=== PATIENT | male | born 1950 | race African-American/Black ===

== ENCOUNTER 2017-12-13 09:42 | Inpatient (IN) | payer OTHER, MEDICARE ==
[~2017-12-13] VITALS: Ht 180.3 cm; Wt 84.8 kg
--- OUTSIDE RECORDS SUMMARY | 2017-12-13 09:44 | XMS REPORT | Clinical Summary ---
Author Author [facility] Organization [facility] Address Unknown Phone Unavailable Care Team Providers Care Camp Boss Name Role Phone Keenan Rojas MD PCP Allergies No Known Allergies Current Medications Prescription Sig. Disp. Refills Start End Date Status Date doxazosin (CARDURA) 1 MG Take 1 mg by mouth Active tablet nightly. pravastatin (PRAVACHOL) Take 40 mg by mouth Active 40 MG tablet daily. atenolol (TENORMIN) 50 MG Take 50 mg by mouth Active tablet daily. aspirin (ECOTRIN) 81 MG Take 81 mg by mouth Active enteric coated tablet daily. vitamin E 400 UNIT Take 400 Units by mouth Active capsule daily. omeprazole (PriLOSEC) 40 Take 40 mg by mouth 04/22/20 Discontin MG capsule daily. 17 ued omeprazole (PriLOSEC) 40 Take 1 capsule (40 mg 30 capsule 1 04/22/20 07/21/20 MG capsule total) by mouth daily for 17 17 90 days. Active Problems Problem Noted Date Gastroesophageal reflux disease 04/22/2017 Dyspepsia 04/22/2017 Dysphagia 04/22/2017 Encounters Date Type Specialty Care Team Description 05/03/2017 Procedure Pass Gastroenterology 04/29/2017 Telephone Gastroenterology Lesli Perez MA 04/22/2017 Office Visit Gastroenterology Eliseo Echevarria MD Gastroesophageal reflux disease, esophagitis presence not specified (Primary Dx);Dyspepsia;Other dysphagia;Dyslipidemia after 12/12/2016 Family History Medical History Relation Name Comments No Known Problems Father Diabetes Mother Heart attack Mother Hypertension Mother Relation Name Status Comments Father Mother Social History Tobacco Use Types Packs/Day Years Used Date Former Smoker Quit: 1987 Alcohol Use Drinks/Week oz/Week Comments No Sex Assigned at Date Recorded Not on file Last Filed Vital Signs Vital Sign Reading Time Taken Blood Pressure 149/90 04/22/2017 1:59 PM CDT Pulse 65 04/22/2017 1:59 PM CDT Temperature 36.8 C (98.3 F) 04/22/2017 1:59 PM CDT Respiratory Rate 12 04/22/2017 1:59 PM CDT Oxygen Saturation - - Inhaled Oxygen - - Concentration Weight 78.8 kg (173 lb 12.8 oz) 04/22/2017 1:59 PM CDT Height 177.8 cm (5' 10") 04/22/2017 1:59 PM CDT Body Mass Index 24.94 04/22/2017 1:59 PM CDT Plan of Treatment Health Maintenance Due Date Last Done Comments COLONOSCOPY 2001 ZOSTER VACCINE 2011 PNEUMOCOCCAL 02/11/2016 POLYSACCHARIDE VACCINE AGE 65 AND OVER PNEUMOCOCCAL-13 02/11/2016 INFLUENZA VACCINE 06/08/2017 Results Not on fileafter 12/12/2016 Insurance Payer Benefit Subscriber ID Type Phone Address Plan / Group AETNA AETNA PPO [id number] PPO OPEN CHOICE
[2017-12-13] MEDS ORDERED: PROCARDIA XL30 MG PO (09:47)
[2017-12-13] MEDS ORDERED: ATENOLOL50 MG PO (09:47)
[2017-12-13] MEDS ORDERED: OMEPRAZOLE40 MG PO (09:47)
[2017-12-13] MEDS ORDERED: ASPIRIN 81 MG CHEW TAB PO STA (09:58)
[2017-12-13] MEDS ORDERED: NITROGLYCERIN 2% OINT 1 GM PKT TOP STA (09:58)
[2017-12-13] MEDS ORDERED: ASPIRIN 81 MG CHEW TAB PO ONE ×2 (10:00→11:15)
[2017-12-13 10:11] LABS: BASOPHILS % 0.4 % (0.0-1.0); EOSINOPHILS # (AUTO) 0.1 (0.0-0.4); EOSINOPHILS % 2.8 % (0.0-6.0); HEMATOCRIT 50.2 % (38.2-49.6); HEMOGLOBIN 17.1 g/dL (14.0-18.0); LYMPHOCYTES # (AUTO) 1.8 (1.0-3.2); LYMPHOCYTES % 38.6 % (18.0-39.1); MEAN CORPUSCULAR HEMOGLOBIN 31.4 pg (28-32); MEAN CORPUSCULAR HGB CONC 34.1 g/dL (31-35); MEAN CORPUSCULAR VOLUME 92.1 fL (81-99); MONOCYTES # (AUTO) 0.4 (0.2-0.8); NEUTROPHILS # (AUTO) 2.3 (2.1-6.9); NEUTROPHILS % 48.8 % (38.7-80.0); PLATELET COUNT 178 x10e3/uL (140-360); RED BLOOD COUNT 5.45 x10e6/uL (4.3-5.7); RED CELL DISTRIBUTION WIDTH 13.2 % (11.7-14.4)
[2017-12-13 10:14] LABS: INR 0.97; PROTHROMBIN TIME 13.4 seconds (11.9-14.5)
[2017-12-13 10:15] LABS: PARTIAL THROMBOPLASTIN TIME 26.8 seconds (23.8-35.5)
--- NOTE | 2017-12-13 10:26 | Diagnostic Imaging Report ---
PROCEDURE:CHEST SINGLE (PORTABLE) TECHNIQUE:Portable AP chest INDICATION:Chest pain COMPARISON:None. FINDINGS: Minimal left basilar subsegmental atelectasis. Lungs otherwise clear. No pleural effusions. Normal heart size, mediastinal contour, and pulmonary vasculature for technique. Intact skeleton. CONCLUSION: No acute abnormality. Dictated by: Rupert Pedraza M.D. on 12/13/2017 at 10:35 Electronically approved by: Rupert Pedraza M.D. on 12/13/2017 at 10:35
[2017-12-13 10:28] LABS: ALANINE AMINOTRANSFERASE 16 IU/L (0-55); ALBUMIN/GLOBULIN RATIO 1.1 (0.8-2.0); ALKALINE PHOSPHATASE 73 IU/L (40-150); ANION GAP 11.3 mmol/L (8-16); BLOOD UREA NITROGEN 12 mg/dL (7-26); BUN/CREATININE RATIO 10 (6-25); CALCIUM 9.4 mg/dL (8.4-10.2); CARBON DIOXIDE 28 mmol/L (22-29); CHLORIDE 103 mmol/L (98-107); CREATINE KINASE 100 IU/L (30-200); CREATININE, SERUM 1.19 mg/dL (0.72-1.25); EST GLOMERULAR FILTRATION RATE > 60 ML/MIN (60-); GLUCOSE 110 mg/dL (74-118); POTASSIUM 4.3 mmol/L (3.5-5.1); SODIUM 138 mmol/L (136-145)
[2017-12-13] MEDS ORDERED: SODIUM CHLORIDE FLUSH 10 ML SYR INJ PRN (11:15)
[2017-12-13] MEDS ORDERED: NITROGLYCERIN 0.4 MG SUBL SL PRN (11:15)
[2017-12-13] MEDS ORDERED: MORPHINE SULFATE 2 MG/ML SYR IV PRN (11:15)
[2017-12-13] MEDS ORDERED: ONDANSETRON HCL INJ 2 MG/ML VIAL IV PRN ×2 (11:15→17:00)
--- OUTSIDE RECORDS SUMMARY | 2017-12-13 11:33 | XMS REPORT | Clinical Summary ---
Author Author [facility] Organization [facility] Address Unknown Phone Unavailable Care Team Providers Care Production Tester Name Role Phone Keenan Rojas MD PCP [...] Address Plan / Group AETNA AETNA PPO [id number] PPO OPEN CHOICE
--- OUTSIDE RECORDS SUMMARY | 2017-12-13 11:33 | XMS REPORT ---
Author Author [facility] Address Unknown Phone Unavailable Care Team Providers Care Manager Marketing Communications Name Role Phone OSMEL WAITE Unavailable Unavailable Problems This patient has no known problems. Allergies, Adverse Reactions, Alerts This patient has no known allergies or adverse reactions. Medications This patient has no known medications. Results Test Description Test Time Test Comments Text Results Atomic Results Result Comments CHEST SINGLE (PORTABLE) [place] [id number] Patient Name: LELO YUNG MR #: [id number] : 1950 Age/Sex: 67/M Req #: [id number] Adm Physician: Ordered by: OSMEL WAITE MD Report #: [id number] Location: ER Room/Bed: Procedure: [id number] DX/CHEST SINGLE (PORTABLE) Exam Date: 12/13/17 Exam Time: 1019 REPORT STATUS: Signed PROCEDURE: CHEST SINGLE (PORTABLE) TECHNIQUE: Portable AP chest INDICATION: Chest pain COMPARISON: None. FINDINGS: Minimal left basilar subsegmental atelectasis. Lungs otherwise clear. No pleural effusions. Normal heart size, mediastinal contour, and pulmonary vasculature for technique. Intact skeleton. CONCLUSION: No acute abnormality. Dictated by: Enma Pedraza M.D. on 12/13/2017 at 10:35 Electronically approved by: Enma Pedraza M.D. on 12/13/2017 at 10:35 Dictated By: ENMA PEDRAZA MD [id number] Transcribed By: ZACHARY on 12/13/17 1035 COPY TO: OSMEL WAITE MD
--- NOTE | 2017-12-13 13:01 | Consultation ---
DATE OF CONSULTATION: December 13, 2017 CARDIOLOGY CONSULTATION REASON FOR CONSULTATION: Chest pain. HISTORY OF PRESENT ILLNESS: Mr. Bearden is a 67-year-old gentleman with a past medical history of hypertension and hypercholesterolemia, who presented to this institution after an episode of chest pain. The patient has been reporting off and on chest pain as being a substernal to left parasternal tightness, aching and heaviness associated with dyspnea, nausea and malaise. This has been going on for the last 6 months and has been slowly escalating over time. He had tried to adjust his lifestyle. However, when decreasing the workload, the pain is becoming more severe and more ominous at present. He also notes when his blood pressure starts to rise, his chest pain also gets worse. The patient has been treated medically with anticholesterol medication as well as high-dose beta bianca therapy to making his heart rate in the 60s range. Despite this, he continues to have discomfort. Cardiology consultation is thus obtained. PAST MEDICAL HISTORY 1. Hypertension, essential. 2. Hypercholesterolemia. 3. GERD with remote history of EGD without any history of ulcer. FAMILY HISTORY: Mother at the age of 81 of old age. Father is unknown. SOCIAL HISTORY: He is a former smoker, quit 40 years ago. Denies any alcohol or illicit drug use. He is a retired maintenance migue. ALLERGIES: NO KNOWN DRUG ALLERGIES. HOME MEDICATIONS 1. Atenolol 50 mg daily. 2. Nifedipine 30 mg daily. 3. Omeprazole 40 mg daily. REVIEW OF SYSTEMS GENERAL: Positive for fatigue and malaise. Denies any fever or chills. HEENT: No headaches, visual complaints, sore throat, stuffy nose. RESPIRATORY: Denies any pleuritic chest pain. Has occasional cough. CARDIOVASCULAR: Tightness is noted as per HPI. Denies any palpitations, syncope or near syncope. GI: Denies any abdominal pain, nausea, vomiting, bright red blood per rectum, melena or hematemesis. : Denies any dysuria. Has increased urinary frequency with nocturia. MUSCULOSKELETAL: Has lower back pain with left leg radicular-type symptoms. SKIN: No rashes or breakdown. ID: No known infectious issues. NEUROLOGIC: Denies any seizures, history of TIA, stroke. OTHER: The remainder of the review of systems is negative unless otherwise mentioned. PHYSICAL EXAMINATION VITALS: Height of 5 feet 10 inches, weight 181 pounds. Pulse 56, blood pressure 118/81, respiratory rate 18. O2 sat is 99% on room air. GENERAL: This is a well-nourished, well-developed gentleman who is currently chest pain-free and in no apparent distress. HEENT: Normocephalic and atraumatic. The extraocular movements are intact. Pupils are equal and reactive to light. Oropharynx is clear. NECK: No elevation of jugular venous pulsation. No carotid bruit. CARDIOVASCULAR: Regular rate and rhythm. Normal S1 and S2. Soft, 2/6, systolic murmur at the right upper sternal border. LUNGS: Largely clear to auscultation bilaterally with good air entry. ABDOMEN: Soft. Nontender and nondistended with normoactive bowel sounds and no hepatosplenomegaly. BACK: No costovertebral angle tenderness. EXTREMITIES: Warm with 2+ bilateral radial pulses, 1 to 2+ bilateral femoral pulses and 1+ pedal pulses. NEUROLOGIC: Cranial nerves II through XII are intact. Strength 5/5. Grossly nonfocal. LABS: White count 4.66, hemoglobin 17.1, hematocrit 50.2, platelets 178. Sodium 138, potassium 4.3, chloride 103, bicarb 28, BUN 12, creatinine 1.9, AST 22, ALT 16, alk phos 73, total protein 7.8, albumin 4.0. BNP 331.6. Troponin 0.04. INR is 0.97. Calcium 9.4. Chest x-ray is unremarkable. EKG reveals normal sinus rhythm, early repolarization pattern and no ST-T-wave changes concerning for ischemia. DIAGNOSES 1. Chest pain by history highly suggestive of [place] Cardiovascular Society grade III angina on dual antianginal with beta bianca and calcium channel bianca therapy. 2. Hypertension, essential. 3. Hypercholesterolemia. 4. Former smoker. PLAN/RECOMMENDATIONS 1. From a cardiovascular standpoint, will put him on antiplatelet therapy and continue his beta bianca, calcium channel bianca therapy and statin therapy. 2. In light of symptoms, will go ahead and proceed with ischemic risk stratification with treadmill stress test to help us figure out the appropriate right next step with a low threshold for cardiac catheterization is positive. 3. Will check an echocardiogram to evaluate his exertional dyspnea symptoms. 4. Telemetry monitoring. 5. Further plans/recommendations to follow. Job#: [id number] MH
--- NOTE | 2017-12-13 13:23 | Cardiology Report ---
DATE OF STUDY: December 13, 2017 EXERCISE TREADMILL STRESS TEST INDICATIONS FOR STUDY: Chest pain highly suggestive of angina. This is for ischemic risk stratification. TECHNICAL DETAIL: After risks, benefits, pros and cons to the exercise treadmill stress test were explained, the patient agreed to proceed. The patient was exercised on a Deejay protocol for a total duration of 7 minutes 37 seconds. The heart rate went from a baseline of 56 beats per minute to a maximum of 114 beats per minute and below the target heart rate of 131 beats per minute. The treadmill stress test was stopped due to ischemic EKG changes and typical anginal symptoms. The blood pressure went from a baseline of 118/81 to a maximum of 178/101. The protocol was terminated in stage 3 of exercise, again at a total exercise duration of 7 minutes 36 seconds. He had maximally [address] depressions in the inferior leads as well as the lateral precordial leads. Ischemic EKG symptoms and changes resolved by 30 minutes into recovery. CONCLUSIONS 1. Abnormal treadmill stress test suggestive of ischemia at a submax exercise protocol with 1 to 2 mm depressions in the inferior and lateral leads along with typical anginal symptoms. 2. Findings of the stress test compatible with intermediate to high risk treadmill stress test. Job#: [id number]
[2017-12-13] MEDS: NITROGLYCERIN 2% OINT 1 GM PKT TOP SCH ×3 (14:50→21:06)
[2017-12-13] MEDS: FAMOTIDINE 20 MG TAB PO SCH ×2 (14:50→20:29)
[2017-12-13 16:38] LABS: BILIRUBIN,URINE NEGATIVE (NEGATIVE); CLARITY,URINE CLEAR (CLEAR); COLOR,URINE YELLOW (YELLOW); KETONES,URINE NEGATIVE (NEGATIVE); LEUKOCYTE ESTERASE ,URINE NEGATIVE (NEGATIVE); NITRITE,URINE NEGATIVE (NEGATIVE); PROTEIN,URINE DIPSTICK NEGATIVE (NEGATIVE); URINE UROBILINOGEN 0.2 mg/dL (0.2 - 1)
[2017-12-13] MEDS ORDERED: CLOPIDOGREL BISULFATE 75 MG TAB PO ONE (16:45)
[2017-12-13] MEDS ORDERED: ACETAMINOPHEN 325 MG TAB PO PRN (17:00)
[2017-12-13] MEDS ORDERED: HYDRALAZINE HCL 20 MG/ML VIAL IV PRN (17:30)
--- NOTE | 2017-12-13 17:56 | History and Physical ---
CHIEF COMPLAINT: Chest pain. HPI: This is a 67-year-old male with a known history of hypertension and hyperlipidemia. He presented to the ED with complaint of chest pain ongoing substernally to the left side with parasternal tightness ongoing for the last 6 months. He reports lately that it has been episodic and has been severe in pain. He also reports having some decrease in workload and becoming more severe over the last few days. He also reports that his blood pressure is elevated, and his chest pain gets worse when his blood pressure is high. The patient also is being treated with anticholesterol medication as well. The patient does not have a primary care physician. Patient was seen and evaluated at bedside on the medical floor and the ER, currently doing well. Denies any chest pain at this current moment. REVIEW OF SYSTEMS: Pertinent positives: Chest pain. Pertinent negatives: Denies any palpitations, nausea, vomiting, diarrhea, dysuria, hematuria, frequency, urgency, lightheadedness, dizziness, abdominal pain, headache, shortness of breath, or any other complaints. The rest of the 14-point review of systems have been reviewed with the patient and are negative. ALLERGIES: NO KNOWN DRUG ALLERGIES. HOME MEDICATIONS 1. Atenolol 50 mg daily. 2. Nifedipine 30 mg daily. 3. Omeprazole 40 mg daily. PAST MEDICAL HISTORY: Hypertension, dyslipidemia, GERD. FAMILY HISTORY: Mother at age 81. Father unknown. Hypertension and diabetes in the family. SURGICAL HISTORY: None. SOCIAL HISTORY: Former smoker, quit 40 years ago. Denies any alcohol or any drugs. He is retired maintenance. VITAL SIGNS: Temperature 98, pulse 50, respiratory rate 16, blood pressure 163/108, pulse ox 98% on room air. LAB FINDINGS: White count 4.6, hemoglobin 17, hematocrit 50, platelets 178. Coagulations are normal. Chemistries: Sodium 138, potassium 4.3, chloride 103, bicarb 28, anion gap 11, BUN 12, creatinine 1.1, glucose 110, calcium 9.4. LFTs are normal. CK was 0.004. BNP 32. Albumin 4. Urinalysis was negative. MICROBIOLOGY: Urine culture pending. IMAGING STUDIES: Chest x-ray was negative. PHYSICAL EXAMINATION GENERAL: No acute distress. Alert and oriented times 3. Cooperative on exam. HEENT: Head is normocephalic and atraumatic. Eyes: Pupils are equal, round, and reactive to light bilaterally. The extraocular movements are intact bilaterally. NECK: Supple. Good range of motion. Throat: No evidence of erythema or exudates in the posterior pharynx. Has poor dentition. PULMONARY: Clear to auscultation bilaterally. No wheezing, no rales, no rhonchi. No crackles appreciated. CARDIOVASCULAR: Positive S1 and S2. No murmurs, rubs or gallops appreciated. ABDOMEN: Soft, nondistended. Nontender to palpation. Bowel sounds are present. MUSCULOSKELETAL: Strength is 5/5 throughout. No evidence of any musculoskeletal deficit on examination. No weakness appreciated. NEUROLOGIC: Cranial nerves II through XII are grossly intact. No evidence of any neurological deficit on exam. SKIN: Intact. Warm to touch. Good capillary refill. PSYCHIATRIC: Normal affect and mood. EXTREMITIES: No edema. Good range of motion throughout. ASSESSMENT AND PLAN 1. Typical chest pain with unstable angina. Troponins are negative. BNP within the normal range. Cardiology has been consulted. Stress test was performed and found to be abnormal already. A 2-D echo is pending. Cardioprotective meds, Plavix, aspirin, LAZ inhibitor, beta blockade and statins. Hemoglobin A1c and lipid panel ordered. 2. Hypertension. Currently, the blood pressure is stable. Will continue the same home medications and monitor closely, p.r.n. hydralazine. 3. Hyperlipidemia. Lipid panel in the morning. Oral Lipitor. 4. Prophylaxis: He is going to be on Lovenox. 5. Fluids, electrolytes and nutrients: IV fluids. Regular heart healthy diet now, n.p.o. after midnight. 6. Disposition: Observation. Cardiology consulted. Job#: [id number]
[2017-12-13 19:05] LABS: CREATINE KINASE MB 1.4 ng/mL (0.00-5.00)
[2017-12-13] MEDS: DOXAZOSIN MESYLATE 2 MG TAB PO SCH (21:06)
[2017-12-13] MEDS: SODIUM CHLORIDE 0.9% 1000ML 1,000 ML IV SCH (21:06)
[2017-12-13] MEDS: ATORVASTATIN 40 MG TAB PO SCH (21:06)
[2017-12-14 02:13] LABS: CREATINE KINASE MB 1.1 ng/mL (0.00-5.00)
[2017-12-14 04:46] LABS: BASOPHILS % 0.5 % (0.0-1.0); EOSINOPHILS # (AUTO) 0.1 (0.0-0.4); EOSINOPHILS % 3.3 % (0.0-6.0); HEMATOCRIT 44.2 % (38.2-49.6); HEMOGLOBIN 15.2 g/dL (14.0-18.0); LYMPHOCYTES # (AUTO) 1.7 (1.0-3.2); LYMPHOCYTES % 42.8 % (18.0-39.1); MEAN CORPUSCULAR HGB CONC 34.4 g/dL (31-35); MEAN CORPUSCULAR VOLUME 90.2 fL (81-99); MONOCYTES # (AUTO) 0.4 (0.2-0.8); MONOCYTES % 9.2 % (4.4-11.3); NEUTROPHILS # (AUTO) 1.7 (2.1-6.9); NEUTROPHILS % 44.2 % (38.7-80.0); PLATELET COUNT 186 x10e3/uL (140-360); RED CELL DISTRIBUTION WIDTH 13.2 % (11.7-14.4)
[2017-12-14 04:57] LABS: INR 1.06; PARTIAL THROMBOPLASTIN TIME 29.3 seconds (23.8-35.5); PROTHROMBIN TIME 14.3 seconds (11.9-14.5)
[2017-12-14 05:14] LABS: ALANINE AMINOTRANSFERASE 14 IU/L (0-55); ALBUMIN 3.4 g/dL (3.5-5.0); ALKALINE PHOSPHATASE 66 IU/L (40-150); ANION GAP 13.2 mmol/L (8-16); BLOOD UREA NITROGEN 16 mg/dL (7-26); BUN/CREATININE RATIO 15 (6-25); CALCIUM 8.7 mg/dL (8.4-10.2); CARBON DIOXIDE 22 mmol/L (22-29); CHLORIDE 107 mmol/L (98-107); CHOL/HDL RATIO 6.5 (3.9-4.7); CHOLESTEROL 169 MD/DL (0-199); CREATININE, SERUM 1.08 mg/dL (0.72-1.25); EST GLOMERULAR FILTRATION RATE > 60 ML/MIN (60-); GLUCOSE 98 mg/dL (74-118); HDL CHOLESTEROL 26 MG/DL (40-60); LDL CHOLESTEROL 108 MG/DL (60-130); POTASSIUM 4.2 mmol/L (3.5-5.1); SODIUM 138 mmol/L (136-145); TRIGLYCERIDES 175 MG/DL (0-149)
[2017-12-14] MEDS: NITROGLYCERIN 2% OINT 1 GM PKT TOP SCH ×3 (05:56→18:48)
[2017-12-14] MEDS: ATENOLOL 50 MG TAB PO SCH (09:00)
[2017-12-14] MEDS: FAMOTIDINE 20 MG TAB PO SCH ×2 (09:00→19:46)
[2017-12-14] MEDS: ASPIRIN 81 MG ENTERIC COATED PO SCH (09:00)
[2017-12-14] MEDS: CLOPIDOGREL BISULFATE 75 MG TAB PO SCH (09:00)
[2017-12-14] MEDS ORDERED: IOPAMIDOL 370 MG/ML 200 ML INFUS..BTL INJ ONE ×2 (09:59→10:44)
[2017-12-14] MEDS ORDERED: LIDOCAINE HCL 2% LOCAL 20 ML VIAL ONE (09:59)
[2017-12-14] MEDS ORDERED: HEPARIN SOD/SOD CHLORIDE 2,000 ML ONE (10:01)
--- OUTSIDE RECORDS SUMMARY | 2017-12-14 10:02 | XMS REPORT | Clinical Summary ---
Author Author [facility] Organization [facility] Address Unknown Phone Unavailable Care Team Providers Care Director Of Residential Services Name Role Phone Keenan Rojas MD PCP [...] presence not specified (Primary Dx);Dyspepsia;Other dysphagia;Dyslipidemia after 12/13/2016 Family History Medical History Relation Name Comments [...] INFLUENZA VACCINE 06/08/2017 Results Not on fileafter 12/13/2016 Insurance Payer Benefit Subscriber ID Type Phone Address Plan / Group AETNA AETNA PPO [id number] PPO OPEN CHOICE
[2017-12-14] MEDS ORDERED: FENTANYL CITRATE/PF 100MCG/2 ML INJ ONE (10:15)
[2017-12-14] MEDS ORDERED: NITROGLYCERIN/D5W 200 MCG/ML 250 ML ONE (10:15)
[2017-12-14] MEDS ORDERED: MIDAZOLAM HCL 2 MG/2 ML VIAL ONE (10:15)
[2017-12-14] MEDS ORDERED: HEPARIN SOD (PORCINE) 1000 UNIT/ML 30ML ONE (10:15)
[2017-12-14] MEDS ORDERED: BIVALIRUDIN 250 MG/VIAL IV ONE (10:35)
[2017-12-14] MEDS ORDERED: SODIUM CHLORIDE 0.9% 50ML 50 ML ONE (10:35)
[2017-12-14] MEDS ORDERED: CLOPIDOGREL BISULFATE 75 MG TAB ONE (11:04)
[2017-12-14] MEDS ORDERED: ASPIRIN 325 MG TAB ONE (11:04)
[2017-12-14] MEDS ORDERED: SODIUM CHLORIDE 0.9% 1000ML 1,000 ML IV SCH (11:42)
[2017-12-14] MEDS ORDERED: MORPHINE SULFATE 2 MG/ML SYR IV PRN (11:45)
[2017-12-14] MEDS ORDERED: ZOLPIDEM TARTRATE 5 MG TAB PO PRN (11:45)
[2017-12-14] MEDS ORDERED: ONDANSETRON HCL INJ 2 MG/ML VIAL IV PRN (11:45)
[2017-12-14] MEDS ORDERED: ACETAMINOPHEN 325 MG TAB PO PRN (11:45)
[2017-12-14] MEDS: SODIUM CHLORIDE 0.9% 1000ML 1,000 ML IV SCH ×2 (12:20→18:47)
--- NOTE | 2017-12-14 13:55 | Operative Report ---
DATE OF PROCEDURE: December 14, 2017 PROCEDURES PERFORMED 1. Left heart cardiac catheterization with coronary angiography. 2. Left ventriculography. 3. Percutaneous coronary intervention with implantation of drug-eluting stent to the first diagonal branch. 4. Angio-Seal closure of the left common femoral arteriotomy . INDICATIONS FOR THE PROCEDURE: This is a 67-year-old gentleman with a history of hypertension and hypercholesteremia who presented to the emergency room with chest pain symptoms and underwent an exercise treadmill stress test. ____. DESCRIPTION OF PROCEDURE: After risks, benefits, pros and cons of today's procedure were explained, the patient agreed to proceed. The patient was brought to the cardiac catheterization laboratory where the right groin was prepped and draped in the usual sterile fashion. Lidocaine 1% solution was used to numb the right groin region. Access to the right femoral artery was obtained and a 4-Malagasy femoral sheath was placed. Selective coronary angiography of the left and right coronary arteries was performed with JL4 and 3DRC diagnostic catheters respectively. An angled pigtail catheter was placed in the ventricle for ventriculography and hemodynamic assessment of ventricular filling pressures. After noting severe , we decided to proceed with intervention. The 4-Malagasy femoral sheath was upsized to a 6-Malagasy, 22 cm femoral sheath. . We took a 6-Malagasy XP 3.5 guiding catheter and selected the left main coronary ostia. We took an 180 cm Prowater flex guidewire and after . We predilated the lesion with an Emerge 2.0 x 15 mm balloon up to 10 atmospheres of pressure for a total duration of 30 seconds. We then took a Synergy 2.25 x 20 mm drug-eluting stent and deployed that up to 12 atmospheres of pressure. Final angiography revealed 0% residual stenosis and no complications. conclusion of the case. Femoral angiogram was performed revealing femoral artery stick and a 6-Malagasy Angio-Seal closure device was successfully deployed achieving hemostasis. COMPLICATIONS: None. ESTIMATED BLOOD LOSS: Minimal. FINDINGS . Job#: [id number] SAK
--- OUTSIDE RECORDS SUMMARY | 2017-12-14 17:13 | XMS REPORT | Clinical Summary ---
Author Author [facility] Organization [facility] Address Unknown Phone Unavailable Care Team Providers Care Tack Picker Name Role Phone Keenan Rojas MD PCP [...] Address Plan / Group AETNA AETNA PPO [id number] PPO OPEN CHOICE
[2017-12-14 17:23] VITALS: BP 132/98
[2017-12-14 17:27] VITALS: BP 132/98
[2017-12-14 17:51] VITALS: BP 132/98
[2017-12-14 19:36] VITALS: BP 146/89
[2017-12-14] MEDS: DOXAZOSIN MESYLATE 2 MG TAB PO SCH (19:45)
[2017-12-14] MEDS: ATORVASTATIN 40 MG TAB PO SCH (19:46)
[2017-12-15] MEDS: NITROGLYCERIN 2% OINT 1 GM PKT TOP SCH ×2 (00:08→05:32)
[2017-12-15 00:11] VITALS: BP 127/90
[2017-12-15 04:57] VITALS: BP 122/78
[2017-12-15 06:49] LABS: BASOPHILS % 0.4 % (0.0-1.0); EOSINOPHILS # (AUTO) 0.2 (0.0-0.4); EOSINOPHILS % 3.7 % (0.0-6.0); HEMATOCRIT 42.7 % (38.2-49.6); HEMOGLOBIN 14.8 g/dL (14.0-18.0); LYMPHOCYTES # (AUTO) 1.4 (1.0-3.2); LYMPHOCYTES % 31.4 % (18.0-39.1); MEAN CORPUSCULAR HEMOGLOBIN 31.1 pg (28-32); MEAN CORPUSCULAR HGB CONC 34.7 g/dL (31-35); MEAN CORPUSCULAR VOLUME 89.7 fL (81-99); MONOCYTES # (AUTO) 0.4 (0.2-0.8); MONOCYTES % 9.2 % (4.4-11.3); NEUTROPHILS # (AUTO) 2.5 (2.1-6.9); NEUTROPHILS % 55.1 % (38.7-80.0); PLATELET COUNT 166 x10e3/uL (140-360); RED BLOOD COUNT 4.76 x10e6/uL (4.3-5.7)
[2017-12-15 07:14] LABS: ANION GAP 12.1 mmol/L (8-16); BLOOD UREA NITROGEN 14 mg/dL (7-26); BUN/CREATININE RATIO 13 (6-25); CALCIUM 8.9 mg/dL (8.4-10.2); CARBON DIOXIDE 25 mmol/L (22-29); CHLORIDE 106 mmol/L (98-107); CREATININE, SERUM 1.11 mg/dL (0.72-1.25); EST GLOMERULAR FILTRATION RATE > 60 ML/MIN (60-); GLUCOSE 95 mg/dL (74-118); POTASSIUM 4.1 mmol/L (3.5-5.1); SODIUM 139 mmol/L (136-145)
[2017-12-15 07:39] VITALS: BP 114/91
[2017-12-15 07:41] VITALS: BP 122/78
[2017-12-15] MEDS: ATENOLOL 50 MG TAB PO SCH (09:00)
[2017-12-15] MEDS: FAMOTIDINE 20 MG TAB PO SCH (09:00)
[2017-12-15] MEDS ORDERED: CLOPIDOGREL BISULFATE 75 MG TAB PO SCH (09:00)
[2017-12-15] MEDS: CLOPIDOGREL BISULFATE 75 MG TAB PO SCH (09:00)
[2017-12-15] MEDS: ASPIRIN 81 MG ENTERIC COATED PO SCH (09:00)
--- NOTE | 2017-12-15 14:27 | Discharge Summary ---
FINAL DISCHARGE DIAGNOSES 1. Status post left heart catheterization with circumflex stent placement. 2. Hypertension. 3. Hyperlipidemia. 4. Coronary artery disease. CONSULTANTS: Cardiology. VITAL SIGNS: Temperature is 98.3, pulse 65, respiratory rate 16, blood pressure 114/91, pulse ox 95% on room air. LAB FINDINGS: Show white count 4.5, hemoglobin 14.8, hematocrit 43, and platelets of 166,000. Coagulations were normal. Chemistry: Sodium 139, potassium 4.1, chloride 106, bicarbonate 25, anion gap of 12, BUN is 14, creatinine 1.1, glucose 95. Hemoglobin A1c 5.6. Calcium 8.9. LFTs were normal. Troponins were negative. Total protein 6.9. Albumin 3.4. LDL was 108. TSH is 1.3. Triglycerides 175. MICROBIOLOGY: Urine cultures were negative. IMAGING STUDIES: Chest x-ray was negative. HOSPITAL COURSE: This is a 67-year-old male who has a history of hypertension, who comes into the ED with complaints of chest pain ongoing for the last several weeks. While here, the patient had a cardiac stress test, which was found to be abnormal. Cardiology was consulted in which the patient had a left heart cath performed on December 14, 2017. According to the reports, the patient had a left circumflex stent placed by cardiology. One stent was placed. Patient was on cardioprotective meds while in the hospital. Per cardiology, the patient has been cleared for discharge home. He will be discharged on lisinopril, Coreg, Plavix, aspirin, and Lipitor. I addressed this with the patient thoroughly at bedside the importance of taking his Plavix and aspirin on a daily basis to avoid thrombosis of the stent. He verbalized understanding and agrees with the plan of care. On the day of discharge, vital signs were stable, labs reviewed and stable. The patient was seen, evaluated and examined thoroughly on the day of discharge. No other complaints. Patient verbalized understanding and agrees to the plan of care. Follow up accordingly as an outpatient with the assistant news director in 2 weeks. MEDICATIONS: See med reconciliation form includin. Lisinopril 2.5 mg 1 tab p.o. daily. 2. Coreg 3.125 mg 1 tab p.o. b.i.d. 3. Plavix 75 mg 1 tab daily. 4. Aspirin 81 mg 1 tab p.o. daily. 5. Lipitor 40 mg 1 tab p.o. daily. DISPOSITION: Home. CONDITION: Stable. DIET: Heart-healthy. FOLLOWUP: With cardiology in the office in 2 weeks. PCP in 1 week. In the event of any worsening symptoms, the patient was advised to come back to the ED for further evaluation. Discharge summary took greater than 35 minutes. SHAQUILLE DURBIN MD Job#: [id number] RI
== END 2017-12-15 12:22 | disposition home or self-care (01) | DRG 247 ==
LOC: ER 09:42 → ERHOLD 11:29 → UNDOADMOB 11:29 → CATH LAB 12-14 10:00 → IMCU 12-14 16:53 → MED/SURG 12-15 08:18
PROVIDERS: ADMIT Internal Medicine; ATTEND Internal Medicine
PROC: 027034Z Dilation of Coronary Artery, One Artery with Drug-eluting Intraluminal Device, Percutaneous Approach (ICD-10-PCS; principal; 2017-12-14)
PROC: 4A023N7 Measurement of Cardiac Sampling and Pressure, Left Heart, Percutaneous Approach (ICD-10-PCS; 2017-12-14)
PROC: B2111ZZ Fluoroscopy of Multiple Coronary Arteries using Low Osmolar Contrast (ICD-10-PCS; 2017-12-14)
PROC: B2151ZZ Fluoroscopy of Left Heart using Low Osmolar Contrast (ICD-10-PCS; 2017-12-14)
DX: I25.110 Atherosclerotic heart disease of native coronary artery with unstable angina pectoris (principal); I10 Essential (primary) hypertension; Z87.891 Personal history of nicotine dependence; E78.5 Hyperlipidemia, unspecified; K21.9 Gastro-esophageal reflux disease without esophagitis
CPT/HCPCS: 36140; 36415; 71045; 77002; 80048; 80053; 80061; 81001; 82550; 82553; 83036; 83880; 84443; 84484; 85025; 85610; 85730; 87086; 93005; 93017; 93452; 93458; 99284; C1766; C9600; J0583; J1644; J2001; J2250; J7030; Q9967

== ENCOUNTER → 2023-05-04 | Day surgery (SDC) | payer MEDICARE ==
[~2023-05-04] MED LIST: ACETAMINOPHEN 1000 MG/100 ML 100 ML IV ONE; ACETAMINOPHEN/CODEINE 300MG - 30MG TAB ONE; ATENOLOL50 MG PO; ATORVASTATIN CA20 MG PO; COLACE100 MG/10 PO; COMPAZINE25 MG PO; DEXAMETHASONE SOD PHOS INJ 4 MG/ML SDV ONE; EPHEDRINE SULFATE INJ 50 MG/ML VIAL ONE; EPINEPHRINE HCL 1:1000 1ML 1 MG/ML AMP ONE; FENTANYL CITRATE/PF 100MCG/2 ML INJ ONE; FLOMAX0.4 MG PO; GLYCOPYRROLATE INJ 0.2 MG/ML VIAL ONE; LACTATED RINGER'S 1,000 ML ONE; LIDOCAINE 2% /EPINEPHRINE 20 ML SDV INJ ONE; LIDOCAINE HCL 2% LOCAL INJ 5 ML SDV VIAL INJ ONE; LOSARTAN-HCTZ1 EAC2 PO; METOPROLOL SUCC50 MG PO; MIDAZOLAM HCL 2 MG/2 ML VIAL ONE; NEOSTIGMINE 1 MG/ML 10ML VIAL ONE; OMEPRAZOLE40 MG PO; ONDANSETRON HCL INJ 2MG/ML 2ML 2 MG/ML VIAL ONE; ONDANSETRON ODT8 MG PO; OXYMETAZOLINE HCL 0.05% NAS 1 SPRAY BTL ONE; POVIDONE IODINE 0.05% 0.05 % ML PO ONE; PROCARDIA XL30 MG PO; PROPOFOL IV EMULSION 10 MG/ML 20 ML VIAL ONE; PROTONIX20 MG PO; ROCURONIUM BROMIDE 10 MG/ML 5ML VIAL IV ONE; WARFARIN SODIUM3 MG PO
[2023-05-04 07:00] LABS: INR 1.04; PROTHROMBIN TIME 14.1 seconds (11.9-14.5)
[2023-05-04 07:01] LABS: PARTIAL THROMBOPLASTIN TIME 29.9 seconds (23.8-35.5)
[2023-05-04] MEDS: FENTANYL CITRATE/PF 100MCG/2 ML INJ ONE ×2 (11:45→11:55)
[2023-05-04 12:30] VITALS: BP 107/69; PULSE 61; RESP 18; O2SAT 97
== END | disposition home or self-care (01) ==
LOC: OR 05:34
PROVIDERS: ATTEND Otolaryngology Otolaryngology/Facial Plastic Surgery
DX: J38.01 Paralysis of vocal cords and larynx, unilateral (principal); R13.10 Dysphagia, unspecified; G47.33 Obstructive sleep apnea (adult) (pediatric); I10 Essential (primary) hypertension; I25.10 Atherosclerotic heart disease of native coronary artery without angina pectoris; I25.2 Old myocardial infarction; E78.5 Hyperlipidemia, unspecified; R42 Dizziness and giddiness; Z79.01 Long term (current) use of anticoagulants; Z79.899 Other long term (current) drug therapy; Z95.5 Presence of coronary angioplasty implant and graft; Z85.6 Personal history of leukemia; Z92.21 Personal history of antineoplastic chemotherapy; Z87.891 Personal history of nicotine dependence
CPT/HCPCS: 31571; 31899; 36415; 43191; 71046; 84132; 85610; 85730; 93005; J0131; J1100; J2001; J2250; J2405; J2704; J2710; J3010; J7121; L8607; J0171

== ENCOUNTER → 2025-07-17 | Day surgery (SDC) | payer MEDICARE ==
[~2025-07-17] MED LIST changes: -ACETAMINOPHEN/CODEINE 300MG - 30MG TAB ONE; +CIALIS5 MG PO; +ELIQUIS5 MG PO; -EPINEPHRINE HCL 1:1000 1ML 1 MG/ML AMP ONE; -LACTATED RINGER'S 1,000 ML ONE; -LIDOCAINE 2% /EPINEPHRINE 20 ML SDV INJ ONE; +LIDOCAINE HCL (LTA) 4 ML SOLN ONE; +LOSARTAN-HCTZ1 EACH PO; -MIDAZOLAM HCL 2 MG/2 ML VIAL ONE; -OXYMETAZOLINE HCL 0.05% NAS 1 SPRAY BTL ONE; -POVIDONE IODINE 0.05% 0.05 % ML PO ONE; +ROCURONIUM BROMIDE 1 ML IV ONE; -ROCURONIUM BROMIDE 10 MG/ML 5ML VIAL IV ONE; +SEVOFLURANE INHAL SOLN 250 ML PEN BTL ONE; +SUCCINYLCHOLINE CHLORIDE 20 MG/ML 10ML VIAL ONE
[2025-07-17] MEDS: LACTATED RINGER'S 1,000 ML ONE (06:27)
[2025-07-17 11:05] VITALS: BP 129/78; PULSE 67; RESP 16; O2SAT 95
== END | disposition home or self-care (01) ==
LOC: OR 05:57
PROVIDERS: ATTEND Otolaryngology Otolaryngology/Facial Plastic Surgery
DX: J38.3 Other diseases of vocal cords (principal); K14.8 Other diseases of tongue; R49.0 Dysphonia; R13.10 Dysphagia, unspecified; Z98.890 Other specified postprocedural states; I10 Essential (primary) hypertension; I25.10 Atherosclerotic heart disease of native coronary artery without angina pectoris; I25.2 Old myocardial infarction; E78.5 Hyperlipidemia, unspecified; K21.9 Gastro-esophageal reflux disease without esophagitis; Z88.8 Allergy status to other drugs, medicaments and biological substances; Z79.02 Long term (current) use of antithrombotics/antiplatelets; Z79.82 Long term (current) use of aspirin; Z79.899 Other long term (current) drug therapy; Z95.5 Presence of coronary angioplasty implant and graft
CPT/HCPCS: 31571; 41105; 43191; 71046; 88305; 93005; J0131; J0330; J1100; J2003; J2405; J2704; J2710; J3010; J7121; L8607